=== PATIENT | female | born 1995 | race Caucasian/White ===

== ENCOUNTER → 2018-01-19 | Day surgery (SDC) | payer BC ==
[~2018-01-19] MED LIST: ACETAMINOPHEN 1000 MG/100 ML 100 ML IV ONE; ACETAMINOPHEN 1000 MG/100 ML IV ONE; AMITIZA24 MCG PO; BACITRACIN 50,000 UNIT VIAL ONE; CARAFATE1 GM/10 ML PO; CEFAZOLIN SOD 1 GM VIAL ONE; DEXAMETHASONE SOD PHOS INJ 4 MG/ML VIAL ONE; DEXILANT60 MG PO; FENTANYL CITRATE/PF 100MCG/2 ML INJ ONE; HYDROMORPHONE 2MG/ML 2 MG/ML ML ONE; IMIPRAMINE HCL25 MG PO; KETOROLAC TROMETHAMINE 30 MG/ML VIAL ONE; LIDOCAINE 2% /EPINEPHRINE 20 ML SDV INJ ONE; LIDOCAINE HCL 2% LOCAL INJ 5 ML SDV VIAL INJ ONE; LO ESTRIN FE PO; MEPERIDINE HCL INJ 50 MG/ML INJ ONE; MIDAZOLAM HCL 2 MG/2 ML VIAL ONE; ONDANSETRON HCL INJ 2 MG/ML VIAL ONE; PANTOPRAZOLE SO40 MG PO; PEPCID20 MG PO; PROPOFOL IV EMULSION 10 MG/ML 20 ML VIAL ONE; ROPIVACAINE 0.5% 5 MG/ML 30 ML SDV ONE; SEVOFLURANE INHAL SOLN 250 ML PEN BTL ONE; ZOFRAN4 MG PO
--- OUTSIDE RECORDS SUMMARY | 2018-01-19 07:23 | XMS REPORT | Continuity of Care Document ---
Author Author [facility] Interface Address Unknown Phone Unavailable Problems Problem Status Onset Date Classification Date Reported Comments Source Medications Medication Details Route Status Patient Instructions Ordering Provider Order Date Source Allergies, Adverse Reactions, Alerts Substance Category Reaction Severity Reaction type Status Date Reported Comments Source Immunizations Immunization Date Given Site Status Last Updated Comments Source Results Order Name Results Value Reference Range Date Interpretation Comments Source Vital Signs Vital Sign Value Date Comments Source Encounters Location Location Details Encounter Type Encounter Number Reason For Visit Attending Provider ADM Date DC Date Status Source Outpatient [id number] [facility] 11/10/2017 Active Aida Hammonds Outpatient [id number] [facility] 11/24/2017 Active Aida Hammonds Procedures Procedure Code Date Perfomer Comments Source
--- NOTE | 2018-01-19 13:29 | Operative Report ---
DATE OF PROCEDURE: January 19, 2018 PREOPERATIVE DIAGNOSIS: Left knee anterior cruciate ligament tear and lateral meniscal tear. POSTOPERATIVE DIAGNOSIS: Left knee anterior cruciate ligament tear and lateral meniscal tear. PROCEDURES 1. Left knee arthroscopy. 2. Partial lateral meniscectomy. 3. Anterior cruciate ligament reconstruction using a tibialis anterior allograft. INDICATIONS: The patient is a 22-year-old young lady who complains of pain and instability in her left knee. Clinic exam and MRI findings are consistent with a lateral meniscal tear and an ACL tear. The patient does not feel like she has aggressive athletics in her future. The risks and benefits of ACL reconstruction with allograft have been discussed. She states she understands and wishes to proceed. DESCRIPTION OF PROCEDURE: The patient was brought to the operating room and placed under general anesthetic. She received prophylactic antibiotics and a regional block in the holding area. Her left lower extremity was prepped and draped in a sterile manner. A tourniquet placed on the upper thigh was inflated to 300 mmHg after exsanguinating the lower extremity. A preoperative time out was performed. Standard arthroscopy portals were established. The knee was insufflated with sterile saline and systematically inspected. The patellofemoral groove and medial compartment were unremarkable. There was a large tear of the lateral meniscus. This was a [id number] tear with a horizontal component in the peripheral margin. A partial lateral meniscectomy was performed using biting forceps and a mechanical shaver. Before and after photographs were taken. The meniscus was debrided back to a stable margin. The anterior cruciate ligament was noted to be completely torn. Notchplasty was performed using a 5.0-mm bone-cutting shaver. An extra-articular alignment guide was then used to place a guide pin into the footprint of the previous ACL. The positioning of the pin was also referenced off of the posterior margin of the anterior horn of the lateral meniscus. A tibialis anterior allograft was prepared on the back table. This was noted to be 9 mm in diameter. The guide pin was over-reamed with a 9-mm reamer. A 5-mm [id number] guide was then used to place a guide pin into the femoral notch and out the anterior cortex and soft tissue. This was at approximately the 2 o'clock position while looking at the femoral notch. This was also over-reamed with a 9-mm acorn reamer. The 4.5-mm Endo button drill was then placed. The length of the Endo button drill was noted to be 40 mm. A 15-mm Endo button was attached to the graft. The graft was passed, and the Endo button was deployed over the anterior cortex. The knee was put through numerous cycles of range of motion. A 9-mm x 25-mm bioabsorbable interference screw was then placed into the tibial tunnel. The knee was inspected and noted to have a negative Brady's test. The graft was inspected arthroscopically and noted to be under appropriate tension. At least 20 mm of graft was buried into the femoral tunnel. The arthroscopic instruments were removed. The incisions were closed with subcuticular Vicryl, Mastisol and Steri-Strips. A sterile bandage and a [place] brace were applied. The patient was extubated and transported to the recovery room in stable condition. There was no blood loss, and all needle and sponge counts were correct. Job#: [id number]
[2018-01-19 14:30] VITALS: BP 109/71
== END | disposition home or self-care (01) ==
LOC: OR 07:21
PROVIDERS: ATTEND Specialist
DX: M23.612 Other spontaneous disruption of anterior cruciate ligament of left knee (principal); K21.9 Gastro-esophageal reflux disease without esophagitis; Z68.34 Body mass index [BMI] 34.0-34.9, adult; Z87.828 Personal history of other (healed) physical injury and trauma
CPT/HCPCS: 29881; 29888; 81025; C1713 ×2; J0131; J0690; J1100; J1170; J1885; J2001 ×2; J2175; J2250; J2405; J2704; J2795